=== PATIENT | male | born 1955 | race American Indian/Alaskan Native ===

== ENCOUNTER 2019-06-11 14:35 | Inpatient (IN) | payer MEDICAID ==
[~2019-06-11] VITALS: Ht 182.9 cm; Wt 77.3 kg
[2019-06-11] MEDS ORDERED: normal saline 1000ML IV soln IVB ONE (14:55)
[2019-06-11] MEDS ORDERED: morphine 4 MG/ML inj SYRINge IV PRN (14:55)
[2019-06-11] MEDS ORDERED: ondansetron/PF 4mg/2ml inj IV ONE (14:55)
[2019-06-11 15:02] LABS: BASOPHILS % (AUTO) 1.1 % (0-1); EOSINOPHILS # (AUTO) 0.1 X10'3 (0-0.9); HEMOGLOBIN 13.2 g/dl (14.0-17.9); LYMPHOCYTES # (AUTO) 1.2 X10'3 (1.1-4.8); LYMPHOCYTES % (AUTO) 31.9 % (21-51); MEAN CORPUSCULAR HGB CONC 33.8 g/dL (33.0-36.5); MEAN CORPUSCULAR VOLUME 103.5 FL (78-98); MEAN PLATELET VOLUME 10.5 FL (7.4-10.4); MONOCYTES # (AUTO) 0.1 X10'3 (0-0.9); MONOCYTES % (AUTO) 3.5 % (2-12); NEUTROPHILS # (AUTO) 2.3 X10'3 (1.8-7.7); NEUTROPHILS % (AUTO) 60.5 % (42-75); PLATELET COUNT 74 X10'3 (140-440); RED BLOOD COUNT 3.77 X10'6 (4.70-6.10); RED CELL DISTRIBUTION WIDTH 15.1 % (11.5-14.5); WHITE BLOOD COUNT 3.8 X10'3 (4.5-11.0)
[2019-06-11] MEDS ORDERED: iohexol 300mg/ml 100ml inj. ONE (15:15)
[2019-06-11 15:16] LABS: ALANINE AMINOTRANSFERASE 142 U/L (12-78); ALBUMIN/GLOBULIN RATIO 0.7 (1.1-1.5); ALKALINE PHOSPHATASE 118 IU/L (46-116); ANION GAP 9 (8-16); ASPARTATE AMINO TRANSFERASE 131 U/L (10-37); BILIRUBIN,TOTAL 1.3 MG/DL (0.1-1.0); BLOOD UREA NITROGEN 11 MG/DL (7-18); BUN/CREATININE RATIO 9.8 (5.4-32.0); CALCIUM 8.2 MG/DL (8.5-10.1); CHLORIDE 106 MMOL/L (99-107); CREATININE 1.12 MG/DL (0.60-1.10); GLUCOSE 102 MG/DL (70-104); LIPASE 209 U/L (73-393); POTASSIUM 3.7 MMOL/L (3.5-5.1); SODIUM 139 MMOL/L (135-145); TOTAL CARBON DIOXIDE 24.1 MMOL/L (24-32); TOTAL PROTEIN 7.2 G/DL (6.4-8.2); eGFR 67 ML/MIN
[2019-06-11] MEDS ORDERED: fentaNYL/PF 50MCG/1 ML 2ML syringe IV ONE (16:40)
[2019-06-11] MEDS ORDERED: proCHLORperazine 10 MG/2 ml inj IV ONE (16:40)
[2019-06-11] MEDS ORDERED: piperacillin/tazo 3.375gm/50ml 50 ML IV ONE (16:40)
[2019-06-11] MEDS ORDERED: acetaminophen 325mg tablet PO PRN ×2 (16:55)
[2019-06-11] MEDS ORDERED: potassium Cl 20 mEq SR tablet PO PRN ×2 (16:55)
[2019-06-11] MEDS ORDERED: magnesium 4gm in 100ml NS 100 ML IV PRN (16:55)
[2019-06-11] MEDS ORDERED: mag hydrox/Alum hydrox/simeth 30ml oral suspension PO PRN (16:55)
[2019-06-11] MEDS ORDERED: diphenhydrAMINE 50 mg/ml inj IV PRN (16:55)
[2019-06-11] MEDS ORDERED: bisacodyl 10mg suppository rectal RC PRN (16:55)
[2019-06-11] MEDS ORDERED: diphenhydrAMINE 25mg capsule PO PRN (16:55)
[2019-06-11] MEDS ORDERED: HYDROcodone/acetaminophen 10/325mg tab PO PRN (16:55)
[2019-06-11] MEDS ORDERED: metoclopramide 5 mg/ml inj IV PRN (16:55)
[2019-06-11] MEDS ORDERED: acetaminophen 650mg rectal suppository RC PRN (16:55)
[2019-06-11] MEDS ORDERED: magnesium 2GM in 50ml NS 50 ML IV PRN (16:55)
[2019-06-11] MEDS ORDERED: HYDROcodone/acetaminophen 5mg/325mg tablet PO PRN (16:55)
[2019-06-11] MEDS ORDERED: ondansetron/PF 4mg/2ml inj IV PRN (16:55)
[2019-06-11] MEDS ORDERED: magnesium Cl slow-release 64mg tablet PO PRN (16:55)
[2019-06-11] MEDS ORDERED: magnesium hydroxide 30ml (MOM) UD suspension PO PRN (16:55)
[2019-06-11] MEDS ORDERED: potassium CL 10mEq/100ml bag 100 ML IV PRN ×2 (16:55)
[2019-06-11] MEDS ORDERED: OMEP40CA13 PO (16:58)
--- NOTE | 2019-06-11 17:20 | NUR ---
PT EKG DONE ,THAO RN AT BEDSIDE ,DOING ASSESSMENT AT THE BEDSIDE.
--- NOTE | 2019-06-11 17:23 | NUR ---
DR HAYNES AT BEDSIDE,IV ABX INFUSING PER MD ORDERS.
[2019-06-11] MEDS: normal saline 1000ml 1,000 ML IV SCH (18:07)
[2019-06-11 18:28] LABS: CLARITY,URINE CLEAR (Clear); COLOR,URINE AMBER (Yellow); GLUCOSE, URINE NEGATIVE (Neg); KETONES,URINE NEGATIVE (Neg); LEUKOCYTE ESTERASE ,URINE NEGATIVE (Neg); NITRITES, URINE NEGATIVE (Neg); OCCULT BLOOD,URINE NEGATIVE (Neg); PH,URINE 5.5 (4.8-8.0); PROTEIN,URINE NEGATIVE (Neg)
[2019-06-11 18:33] LABS: UA COLLECTION TYPE URINAL
[2019-06-11 20:10] VITALS: BP 138/77
--- NOTE | 2019-06-11 20:10 | NUR ---
PATIENT ADMITTED TO ROOM 346A FROM ER FOR ACUTE CHOLECYSTITIS. PLACED COMFORTABLE IN BED. VITAL SIGNS TAKEN AND RECORDED.
[2019-06-11] MEDS ORDERED: temazepam 15mg capsule PO PRN (21:00)
[2019-06-12] VITALS: BP 113/63
[2019-06-12] MEDS: normal saline 1000ml 1,000 ML IV SCH ×2 (04:01→17:46)
[2019-06-12] MEDS: HYDROmorphone 1 mg/ml syringe IV PRN ×5 (05:08→22:51)
[2019-06-12 05:39] LABS: BASOPHILS % (AUTO) 0.2 % (0-1); EOSINOPHILS % (AUTO) 0.1 % (0-6); HEMATOCRIT 32.8 % (42.0-52.0); HEMOGLOBIN 11.6 g/dl (14.0-17.9); LYMPHOCYTES # (AUTO) 0.7 X10'3 (1.1-4.8); LYMPHOCYTES % (AUTO) 8.2 % (21-51); MEAN CORPUSCULAR HEMOGLOBIN 35.7 PG (27.0-31.0); MEAN CORPUSCULAR HGB CONC 35.3 g/dL (33.0-36.5); MEAN CORPUSCULAR VOLUME 101.1 FL (78-98); MONOCYTES # (AUTO) 0.8 X10'3 (0-0.9); MONOCYTES % (AUTO) 8.5 % (2-12); NEUTROPHILS # (AUTO) 7.4 X10'3 (1.8-7.7); PLATELET COUNT 52 X10'3 (140-440); RED BLOOD COUNT 3.25 X10'6 (4.70-6.10); RED CELL DISTRIBUTION WIDTH 14.7 % (11.5-14.5); WHITE BLOOD COUNT 8.9 X10'3 (4.5-11.0)
[2019-06-12 05:49] LABS: ALANINE AMINOTRANSFERASE 118 U/L (12-78); ALBUMIN 2.3 G/DL (3.4-5.0); ALBUMIN/GLOBULIN RATIO 0.7 (1.1-1.5); ALKALINE PHOSPHATASE 67 IU/L (46-116); ANION GAP 8 (8-16); ASPARTATE AMINO TRANSFERASE 99 U/L (10-37); BLOOD UREA NITROGEN 15 MG/DL (7-18); BUN/CREATININE RATIO 14.3 (5.4-32.0); CALCIUM 7.6 MG/DL (8.5-10.1); CHLORIDE 108 MMOL/L (99-107); CREATININE 1.05 MG/DL (0.60-1.10); GLUCOSE 71 MG/DL (70-104); MAGNESIUM 1.3 MG/DL (1.5-2.4); PHOSPHORUS 4.1 MG/DL (2.3-4.5); POTASSIUM 4.1 MMOL/L (3.5-5.1); SODIUM 138 MMOL/L (135-145); TOTAL CARBON DIOXIDE 22.4 MMOL/L (24-32); TOTAL PROTEIN 5.8 G/DL (6.4-8.2); eGFR 72 ML/MIN
--- NOTE | 2019-06-12 06:08 | NUR ---
Problems reprioritized. Patient report given, questions answered & plan of care reviewed with JAYJAY GARCÍA.
--- NOTE | 2019-06-12 06:40 | NUR ---
Patient in room [facility]. I have received report from Melissa kyle and had the opportunity to ask questions and assume patient care.
[2019-06-12] MEDS: pantoprazole 40mg Tablet.DR PO SCH (07:56)
[2019-06-12 08:00] VITALS: BP 97/58
[2019-06-12] MEDS: K and/or MAG REPLACEMENT MC SCH (08:00)
[2019-06-12 12:00] VITALS: BP 108/61
[2019-06-12] MEDS ORDERED: SINCALIDE IV ONE (14:35)
[2019-06-12] MEDS ORDERED: NORMAL SALINE IV ONE (14:35)
[2019-06-12] MEDS ORDERED: diatrozoate meglu/diatrozoate sod (37% iodine) 120ML oral solution ONE (15:26)
[2019-06-12 20:00] VITALS: BP 144/93
[2019-06-12 23:55] VITALS: BP 132/70
[2019-06-13] MEDS: normal saline 1000ml 1,000 ML IV SCH ×3 (02:45→15:07)
[2019-06-13] MEDS: HYDROmorphone 1 mg/ml syringe IV PRN ×3 (04:41→19:57)
[2019-06-13 05:24] LABS: BASOPHILS % (AUTO) 0.2 % (0-1); EOSINOPHILS # (AUTO) 0.2 X10'3 (0-0.9); EOSINOPHILS % (AUTO) 1.8 % (0-6); HEMATOCRIT 31.9 % (42.0-52.0); LYMPHOCYTES # (AUTO) 1.4 X10'3 (1.1-4.8); LYMPHOCYTES % (AUTO) 15.7 % (21-51); MEAN CORPUSCULAR HEMOGLOBIN 35.5 PG (27.0-31.0); MEAN CORPUSCULAR HGB CONC 34.5 g/dL (33.0-36.5); MEAN CORPUSCULAR VOLUME 102.9 FL (78-98); MEAN PLATELET VOLUME 10.1 FL (7.4-10.4); MONOCYTES % (AUTO) 11.2 % (2-12); NEUTROPHILS # (AUTO) 6.2 X10'3 (1.8-7.7); NEUTROPHILS % (AUTO) 71.1 % (42-75); RED BLOOD COUNT 3.11 X10'6 (4.70-6.10); RED CELL DISTRIBUTION WIDTH 14.9 % (11.5-14.5); WHITE BLOOD COUNT 8.7 X10'3 (4.5-11.0)
[2019-06-13 05:36] LABS: ALANINE AMINOTRANSFERASE 94 U/L (12-78); ALBUMIN 2.2 G/DL (3.4-5.0); ALBUMIN/GLOBULIN RATIO 0.6 (1.1-1.5); ALKALINE PHOSPHATASE 63 IU/L (46-116); ANION GAP 6 (8-16); ASPARTATE AMINO TRANSFERASE 71 U/L (10-37); BILIRUBIN,TOTAL 2.2 MG/DL (0.1-1.0); BLOOD UREA NITROGEN 17 MG/DL (7-18); BUN/CREATININE RATIO 18.3 (5.4-32.0); CALCIUM 7.3 MG/DL (8.5-10.1); CHLORIDE 105 MMOL/L (99-107); CREATININE 0.93 MG/DL (0.60-1.10); GLUCOSE 94 MG/DL (70-104); MAGNESIUM 2.3 MG/DL (1.5-2.4); PHOSPHORUS 2.2 MG/DL (2.3-4.5); SODIUM 134 MMOL/L (135-145); TOTAL CARBON DIOXIDE 23.5 MMOL/L (24-32); TOTAL PROTEIN 5.7 G/DL (6.4-8.2); eGFR 83 ML/MIN
[2019-06-13 06:12] LABS: PLATELET COUNT 47 X10'3 (140-440)
--- NOTE | 2019-06-13 06:43 | NUR ---
Problems reprioritized. Patient report given, questions answered & plan of care reviewed with Corinna GARCÍA.
--- NOTE | 2019-06-13 06:57 | NUR ---
Dr Saeed notified of critical plt 47. Will also notify day time hospitalist.
[2019-06-13 07:00] VITALS: BP 123/74
[2019-06-13] MEDS: K and/or MAG REPLACEMENT MC SCH (08:00)
[2019-06-13] MEDS: pantoprazole 40mg Tablet.DR PO SCH (08:00)
[2019-06-13] MEDS ORDERED: morphine 2 MG/ML inj. syringe IV ONE (11:00)
[2019-06-13 12:27] VITALS: BP 139/76
[2019-06-13 15:36] LABS: CHOL/HDL RATIO 1.8 (0.00-4.99); CHOLESTEROL 91 MG/DL (0-200); HDL CHOLESTEROL 50 MG/DL (35-60); LDL CHOLESTEROL 30 MG/DL (50-100); TRIGLYCERIDES 53 MG/DL (20-135)
--- NOTE | 2019-06-13 18:51 | NUR ---
Patient in room [facility]. I have received report from Corinna GARCÍA and had the opportunity to ask questions and assume patient care.
--- NOTE | 2019-06-13 19:39 | NUR ---
Problems reprioritized. Patient report given, questions answered & plan of care reviewed with Cindy RN.
[2019-06-13 20:00] VITALS: BP 129/80
[2019-06-13] MEDS ORDERED: LORazepam 1 MG tablet PO PRN (20:20)
[2019-06-14] VITALS: BP 125/72
[2019-06-14] MEDS: HYDROmorphone 1 mg/ml syringe IV PRN ×2 (00:07→23:54)
[2019-06-14] MEDS: normal saline 1000ml 1,000 ML IV SCH ×2 (00:11→15:41)
[2019-06-14 05:00] LABS: BASOPHILS % (AUTO) 0.2 % (0-1); EOSINOPHILS # (AUTO) 0.2 X10'3 (0-0.9); EOSINOPHILS % (AUTO) 2.8 % (0-6); HEMATOCRIT 30.8 % (42.0-52.0); HEMOGLOBIN 10.8 g/dl (14.0-17.9); LYMPHOCYTES # (AUTO) 1.2 X10'3 (1.1-4.8); MEAN CORPUSCULAR HEMOGLOBIN 35.8 PG (27.0-31.0); MEAN CORPUSCULAR HGB CONC 35.2 g/dL (33.0-36.5); MEAN CORPUSCULAR VOLUME 101.7 FL (78-98); MONOCYTES # (AUTO) 0.7 X10'3 (0-0.9); MONOCYTES % (AUTO) 11.9 % (2-12); NEUTROPHILS # (AUTO) 3.6 X10'3 (1.8-7.7); NEUTROPHILS % (AUTO) 64.1 % (42-75); PLATELET COUNT 62 X10'3 (140-440); RED BLOOD COUNT 3.02 X10'6 (4.70-6.10); RED CELL DISTRIBUTION WIDTH 14.9 % (11.5-14.5); WHITE BLOOD COUNT 5.6 X10'3 (4.5-11.0)
[2019-06-14 05:06] LABS: ALANINE AMINOTRANSFERASE 78 U/L (12-78); ALBUMIN 2.1 G/DL (3.4-5.0); ALBUMIN/GLOBULIN RATIO 0.6 (1.1-1.5); ALKALINE PHOSPHATASE 63 IU/L (46-116); ANION GAP 9 (8-16); ASPARTATE AMINO TRANSFERASE 59 U/L (10-37); BILIRUBIN,TOTAL 2.4 MG/DL (0.1-1.0); BLOOD UREA NITROGEN 16 MG/DL (7-18); BUN/CREATININE RATIO 17.8 (5.4-32.0); CALCIUM 7.2 MG/DL (8.5-10.1); CHLORIDE 108 MMOL/L (99-107); GLUCOSE 77 MG/DL (70-104); MAGNESIUM 1.8 MG/DL (1.5-2.4); PHOSPHORUS 2.4 MG/DL (2.3-4.5); POTASSIUM 4.2 MMOL/L (3.5-5.1); SODIUM 139 MMOL/L (135-145); TOTAL CARBON DIOXIDE 21.6 MMOL/L (24-32); TOTAL PROTEIN 5.6 G/DL (6.4-8.2); eGFR 86 ML/MIN
--- NOTE | 2019-06-14 06:37 | NUR ---
Problems reprioritized. Patient report given, questions answered & plan of care reviewed with Elizabeth GARCÍA.
[2019-06-14 07:00] VITALS: BP 118/65
[2019-06-14] MEDS: K and/or MAG REPLACEMENT MC SCH (08:00)
--- NOTE | 2019-06-14 08:45 | NUR ---
Pt refused AM med pass at this time. States, 'I just want to sleep, give me until 9'. Will try again at 0900 and continue to monitor.
[2019-06-14] MEDS: pantoprazole 40mg Tablet.DR PO SCH (09:13)
[2019-06-14] MEDS: HYDROmorphone inj. 0.5 MG/0.5 ML DISP.SYRIN IV PRN ×2 (09:22→15:44)
[2019-06-14 11:33] VITALS: BP 130/77
[2019-06-14 18:00] VITALS: BP 162/84
--- NOTE | 2019-06-14 18:30 | NUR ---
received report from RICKY Johnson
--- NOTE | 2019-06-14 18:45 | NUR ---
Problems reprioritized. Patient report given, questions answered & plan of care reviewed with RICKY Weaver.
[2019-06-15] VITALS: BP 152/76
[2019-06-15] MEDS: normal saline 1000ml 1,000 ML IV SCH ×3 (00:51→22:28)
[2019-06-15 05:25] LABS: BASOPHILS % (AUTO) 0.6 % (0-1); EOSINOPHILS % (AUTO) 0.5 % (0-6); HEMOGLOBIN 10.8 g/dl (14.0-17.9); LYMPHOCYTES # (AUTO) 0.5 X10'3 (1.1-4.8); LYMPHOCYTES % (AUTO) 14.5 % (21-51); MEAN CORPUSCULAR HEMOGLOBIN 35.4 PG (27.0-31.0); MEAN CORPUSCULAR HGB CONC 34.9 g/dL (33.0-36.5); MEAN CORPUSCULAR VOLUME 101.4 FL (78-98); MEAN PLATELET VOLUME 9.6 FL (7.4-10.4); MONOCYTES # (AUTO) 0.5 X10'3 (0-0.9); MONOCYTES % (AUTO) 14.9 % (2-12); NEUTROPHILS # (AUTO) 2.5 X10'3 (1.8-7.7); NEUTROPHILS % (AUTO) 69.5 % (42-75); PLATELET COUNT 71 X10'3 (140-440); RED BLOOD COUNT 3.06 X10'6 (4.70-6.10); RED CELL DISTRIBUTION WIDTH 14.4 % (11.5-14.5); WHITE BLOOD COUNT 3.5 X10'3 (4.5-11.0)
[2019-06-15 05:27] LABS: ALANINE AMINOTRANSFERASE 81 U/L (12-78); ALBUMIN 2.2 G/DL (3.4-5.0); ALBUMIN/GLOBULIN RATIO 0.6 (1.1-1.5); ALKALINE PHOSPHATASE 71 IU/L (46-116); ANION GAP 7 (8-16); ASPARTATE AMINO TRANSFERASE 76 U/L (10-37); BILIRUBIN,TOTAL 2.1 MG/DL (0.1-1.0); BLOOD UREA NITROGEN 12 MG/DL (7-18); BUN/CREATININE RATIO 12.6 (5.4-32.0); CHLORIDE 109 MMOL/L (99-107); CREATININE 0.95 MG/DL (0.60-1.10); GLUCOSE 110 MG/DL (70-104); MAGNESIUM 1.6 MG/DL (1.5-2.4); PHOSPHORUS 2.8 MG/DL (2.3-4.5); POTASSIUM 4.2 MMOL/L (3.5-5.1); SODIUM 139 MMOL/L (135-145); TOTAL CARBON DIOXIDE 22.6 MMOL/L (24-32); TOTAL PROTEIN 5.7 G/DL (6.4-8.2); eGFR 81 ML/MIN
--- NOTE | 2019-06-15 06:50 | NUR ---
Problems reprioritized. Patient report given, questions answered & plan of care reviewed with RICKY Johnson.
[2019-06-15 07:04] LABS: HBSAG SCREEN Negative (Negative); HEP A AB, IGM Negative (Negative); HEP B CORE AB, IGM Negative (Negative); HEPATITIS C ANTIBODY >11.0 s/co ratio (0.0-0.9)
[2019-06-15 07:48] VITALS: BP 124/64
[2019-06-15] MEDS: K and/or MAG REPLACEMENT MC SCH (08:00)
[2019-06-15] MEDS: pantoprazole 40mg Tablet.DR PO SCH (09:34)
--- NOTE | 2019-06-15 11:15 | NUR ---
[facility]
--- NOTE | 2019-06-15 11:53 | NUR ---
Initial: Pt admit with abdominal pain and transaminitis. Per MD progress notes HIDA scan showed no evidence of cholecystitis. Pt previously on regular diet documented with 75-100% PO intake likely meeting nutrient needs however diet has now been changed to NPO pending MRCP. LBM 06/14. No edema or wounds. No nutrition diagnosis at this time. Will continue to follow. Recommendations: 1) Advance to regular diet as medically indicated 2) Bowel care 3) Wt per rx Addendum: 06/15/19 at [address] Amended: Links added.
[2019-06-15 12:45] VITALS: BP 132/67
[2019-06-15] MEDS: HYDROmorphone 1 mg/ml syringe IV PRN ×2 (13:00→22:33)
[2019-06-15] MEDS ORDERED: PEG 3350/Na sulf,bicarb,Cl/KCl oral sol 4 liter bottle PO ONE (15:25)
[2019-06-15 18:00] VITALS: BP 120/66
[2019-06-15] MEDS: HYDROmorphone inj. 0.5 MG/0.5 ML DISP.SYRIN IV PRN (18:02)
--- NOTE | 2019-06-15 18:10 | NUR ---
Patient in room [facility]. I have received report from Elizabeth GARCÍA and had the opportunity to ask questions and assume patient care.
--- NOTE | 2019-06-15 18:33 | NUR ---
Problems reprioritized. Patient report given, questions answered & plan of care reviewed with RICKY Mohan.
--- NOTE | 2019-06-15 18:37 | NUR ---
Student documentation: I have reviewed and agree with all interventions, assessments performed and documented by RICKY Bang.
[2019-06-16] VITALS (9 sets, daily range): BP systolic 119–147; BP diastolic 67–88
[2019-06-16] MEDS: HYDROmorphone 1 mg/ml syringe IV PRN ×2 (04:18→23:08)
--- NOTE | 2019-06-16 06:12 | NUR ---
Patient in room [facility]. I have received report from RICKY Mohan and had the opportunity to ask questions and assume patient care.
--- NOTE | 2019-06-16 06:17 | NUR ---
Problems reprioritized. Patient report given, questions answered & plan of care reviewed with Elizabeth GARCÍA.
[2019-06-16 06:55] LABS: BASOPHILS % (AUTO) 0.8 % (0-1); EOSINOPHILS # (AUTO) 0.1 X10'3 (0-0.9); EOSINOPHILS % (AUTO) 3.6 % (0-6); HEMATOCRIT 31.9 % (42.0-52.0); HEMOGLOBIN 11.1 g/dl (14.0-17.9); LYMPHOCYTES # (AUTO) 0.9 X10'3 (1.1-4.8); LYMPHOCYTES % (AUTO) 22.4 % (21-51); MEAN CORPUSCULAR HEMOGLOBIN 35.3 PG (27.0-31.0); MEAN CORPUSCULAR HGB CONC 34.7 g/dL (33.0-36.5); MEAN CORPUSCULAR VOLUME 101.6 FL (78-98); MONOCYTES # (AUTO) 0.9 X10'3 (0-0.9); MONOCYTES % (AUTO) 23.5 % (2-12); NEUTROPHILS % (AUTO) 49.7 % (42-75); PLATELET COUNT 84 X10'3 (140-440); RED BLOOD COUNT 3.14 X10'6 (4.70-6.10); RED CELL DISTRIBUTION WIDTH 14.6 % (11.5-14.5)
[2019-06-16 07:14] LABS: ALANINE AMINOTRANSFERASE 96 U/L (12-78); ALBUMIN 2.3 G/DL (3.4-5.0); ALBUMIN/GLOBULIN RATIO 0.6 (1.1-1.5); ALKALINE PHOSPHATASE 69 IU/L (46-116); ANION GAP 8 (8-16); ASPARTATE AMINO TRANSFERASE 100 U/L (10-37); BILIRUBIN,TOTAL 1.9 MG/DL (0.1-1.0); BLOOD UREA NITROGEN 10 MG/DL (7-18); BUN/CREATININE RATIO 10.4 (5.4-32.0); CALCIUM 7.4 MG/DL (8.5-10.1); CHLORIDE 108 MMOL/L (99-107); CREATININE 0.96 MG/DL (0.60-1.10); GLUCOSE 76 MG/DL (70-104); MAGNESIUM 1.4 MG/DL (1.5-2.4); PHOSPHORUS 2.3 MG/DL (2.3-4.5); POTASSIUM 3.7 MMOL/L (3.5-5.1); SODIUM 139 MMOL/L (135-145); TOTAL CARBON DIOXIDE 22.7 MMOL/L (24-32); eGFR 80 ML/MIN
[2019-06-16] MEDS: pantoprazole 40mg Tablet.DR PO SCH (07:47)
[2019-06-16] MEDS: normal saline 1000ml 1,000 ML IV SCH ×2 (07:47→18:22)
[2019-06-16] MEDS: K and/or MAG REPLACEMENT MC SCH (08:00)
[2019-06-16] MEDS: HYDROmorphone inj. 0.5 MG/0.5 ML DISP.SYRIN IV PRN ×2 (09:24→18:22)
[2019-06-16] MEDS ORDERED: fentaNYL/PF 50MCG/1 ML 2ML syringe ONE (09:50)
[2019-06-16] MEDS ORDERED: MIDAZolam 5mg/5ml vial ONE (09:50)
--- NOTE | 2019-06-16 10:14 | NUR ---
pt transported to colonoscopy
--- NOTE | 2019-06-16 11:46 | NUR ---
pt back from colonoscopy
--- NOTE | 2019-06-16 18:15 | NUR ---
Patient in room [facility]. I have received report from Elizabeth GARCÍA and had the opportunity to ask questions and assume patient care.
--- NOTE | 2019-06-16 18:35 | NUR ---
Problems reprioritized. Patient report given, questions answered & plan of care reviewed with RICKY Mohan.
[2019-06-16] MEDS: ciprofloxacin lact 400MG/200ML 200 ML IV SCH (19:26)
[2019-06-17] VITALS: BP 127/76
[2019-06-17] MEDS: normal saline 1000ml 1,000 ML IV SCH ×3 (02:51→22:51)
[2019-06-17] MEDS: HYDROmorphone 1 mg/ml syringe IV PRN ×5 (03:08→23:32)
--- NOTE | 2019-06-17 06:32 | NUR ---
Problems reprioritized. Patient report given, questions answered & plan of care reviewed with Ananya GARCÍA.
--- NOTE | 2019-06-17 06:39 | NUR ---
Patient in room [facility]. I have received report from RICKY Mohan and had the opportunity to ask questions and assume patient care.
[2019-06-17 06:54] VITALS: BP 143/80
[2019-06-17] MEDS: K and/or MAG REPLACEMENT MC SCH (08:00)
[2019-06-17] MEDS: ciprofloxacin lact 400MG/200ML 200 ML IV SCH ×2 (08:03→20:02)
[2019-06-17] MEDS: pantoprazole 40mg Tablet.DR PO SCH (08:04)
[2019-06-17 10:47] LABS: BASOPHILS % (AUTO) 0.9 % (0-1); EOSINOPHILS # (AUTO) 0.2 X10'3 (0-0.9); EOSINOPHILS % (AUTO) 4.2 % (0-6); HEMATOCRIT 36.2 % (42.0-52.0); HEMOGLOBIN 12.5 g/dl (14.0-17.9); LYMPHOCYTES # (AUTO) 1.2 X10'3 (1.1-4.8); LYMPHOCYTES % (AUTO) 27.8 % (21-51); MEAN CORPUSCULAR HEMOGLOBIN 35.2 PG (27.0-31.0); MEAN CORPUSCULAR HGB CONC 34.4 g/dL (33.0-36.5); MEAN CORPUSCULAR VOLUME 102.1 FL (78-98); MEAN PLATELET VOLUME 8.4 FL (7.4-10.4); MONOCYTES # (AUTO) 0.9 X10'3 (0-0.9); MONOCYTES % (AUTO) 21.1 % (2-12); NEUTROPHILS # (AUTO) 1.9 X10'3 (1.8-7.7); PLATELET COUNT 107 X10'3 (140-440); RED BLOOD COUNT 3.55 X10'6 (4.70-6.10); RED CELL DISTRIBUTION WIDTH 14.9 % (11.5-14.5); WHITE BLOOD COUNT 4.2 X10'3 (4.5-11.0)
[2019-06-17 10:57] LABS: ALANINE AMINOTRANSFERASE 96 U/L (12-78); ALBUMIN 2.7 G/DL (3.4-5.0); ALBUMIN/GLOBULIN RATIO 0.7 (1.1-1.5); ALKALINE PHOSPHATASE 76 IU/L (46-116); ANION GAP 10 (8-16); ASPARTATE AMINO TRANSFERASE 94 U/L (10-37); BILIRUBIN,TOTAL 1.7 MG/DL (0.1-1.0); BLOOD UREA NITROGEN 6 MG/DL (7-18); BUN/CREATININE RATIO 5.5 (5.4-32.0); CALCIUM 7.7 MG/DL (8.5-10.1); CHLORIDE 107 MMOL/L (99-107); GLUCOSE 107 MG/DL (70-104); POTASSIUM 3.7 MMOL/L (3.5-5.1); SODIUM 139 MMOL/L (135-145); TOTAL CARBON DIOXIDE 21.6 MMOL/L (24-32); TOTAL PROTEIN 6.7 G/DL (6.4-8.2); eGFR 68 ML/MIN
[2019-06-17 11:00] VITALS: BP 140/73
[2019-06-17 11:16] LABS: PLATELET ESTIMATE DECREASED; TOTAL CELLS COUNTED 100
--- NOTE | 2019-06-17 18:30 | NUR ---
Problems reprioritized. Patient report given, questions answered & plan of care reviewed with Melyssa RN.
[2019-06-17 19:30] VITALS: BP 149/78
[2019-06-17 23:30] VITALS: BP 148/67
[2019-06-18] MEDS: HYDROmorphone 1 mg/ml syringe IV PRN ×3 (04:07→14:41)
[2019-06-18] MEDS: normal saline 1000ml 1,000 ML IV SCH ×2 (04:12→14:49)
--- NOTE | 2019-06-18 06:50 | NUR ---
Patient in room [facility]. I have received report from RICKY Ragsdale and had the opportunity to ask questions and assume patient care.
[2019-06-18 06:54] VITALS: BP 141/63
[2019-06-18] MEDS: pantoprazole 40mg Tablet.DR PO SCH (07:31)
[2019-06-18] MEDS: ciprofloxacin lact 400MG/200ML 200 ML IV SCH (07:31)
[2019-06-18] MEDS: K and/or MAG REPLACEMENT MC SCH (08:00)
[2019-06-18 11:00] VITALS: BP 146/62
--- NOTE | 2019-06-18 11:00 | NUR ---
Per Yusef Washington RN, infection control: He has talked to Dr Mccoy about lab not running the stool culture because it has been more than [address] Mccoy says in certain circumstances the lab may run the specimen but the protocol is that stool cultures are not ran after 3 days without approval from infection control. Dr Mccoy has reviewed this case and the antibiotics that the patient is on and relays that culturing the stool at this point would be unnecessary and the test has been canceled.
[2019-06-18] MEDS ORDERED: metroNIDAZOLE-Flagyl 500mg/NS 100 ML IV SCH (11:10)
[2019-06-18] MEDS ORDERED: potassium CL 10mEq/100ml bag 100 ML IV PRN (13:30)
[2019-06-18] MEDS ORDERED: potassium Cl 20 mEq SR tablet PO PRN ×2 (13:30)
[2019-06-18] MEDS ORDERED: magnesium 4gm in 100ml NS 100 ML IV PRN (13:30)
[2019-06-18] MEDS ORDERED: magnesium 2GM in 50ml NS 50 ML IV PRN (13:30)
[2019-06-18] MEDS ORDERED: magnesium Cl slow-release 64mg tablet PO PRN (13:30)
[2019-06-18] MEDS ORDERED: METR-159 PO (15:15)
[2019-06-18] MEDS ORDERED: LEVO750T46 PO (15:15)
--- NOTE | 2019-06-18 15:56 | NUR ---
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
--- NOTE | 2019-06-18 16:37 | NUR ---
Patient stable and appropriate for discharge, education given, new meds sent to [facility] [address], all belongings sent with patient, patient taken to lobby in a wheel chair to an awaiting car when a friend was going to take the patient home
== END 2019-06-18 16:38 | disposition home or self-care (01) | DRG 249 ==
LOC: ER 14:36 → ED HOLD 17:08 → SUR 3N 20:05
PROVIDERS: ADMIT Family Medicine; ATTEND Family Medicine
PROC: BW211ZZ Computerized Tomography (CT Scan) of Abdomen and Pelvis using Low Osmolar Contrast (ICD-10-PCS; 2019-06-11)
PROC: CF141ZZ Planar Nuclear Medicine Imaging of Gallbladder using Technetium 99m (Tc-99m) (ICD-10-PCS; 2019-06-13)
PROC: 0DBN8ZX Excision of Sigmoid Colon, Via Natural or Artificial Opening Endoscopic, Diagnostic (ICD-10-PCS; principal; 2019-06-16)
DX: A09 Infectious gastroenteritis and colitis, unspecified (principal); J90 Pleural effusion, not elsewhere classified; D69.6 Thrombocytopenia, unspecified; R18.8 Other ascites; E83.42 Hypomagnesemia; R16.0 Hepatomegaly, not elsewhere classified; K74.60 Unspecified cirrhosis of liver; K80.80 Other cholelithiasis without obstruction; B18.2 Chronic viral hepatitis C; F17.200 Nicotine dependence, unspecified, uncomplicated; G83.4 Cauda equina syndrome; K64.8 Other hemorrhoids; F12.90 Cannabis use, unspecified, uncomplicated; G89.29 Other chronic pain; K76.9 Liver disease, unspecified; K92.1 Melena; M54.9 Dorsalgia, unspecified
CPT/HCPCS: 36415; 45380; 71045; 74177; 74181; 76700; 78227; 80053; 80061; 80074; 81003; 83605; 83690; 83735; 84100; 84145; 85025; 85610; 87040; 87081; 93005; 96361; 96365; 96375; 99152; 99285; A4620; A9537; G0378; J0744; J0780; J1170; J2250; J2270; J2405; J2543; J2805; J3010; J3475; J7030; J7040; Q9963; Q9967